=== PATIENT | male | born 1990 ===

== ENCOUNTER 2018-11-04 20:42 | Emergency (ER) | payer SELFPAY ==
[~2018-11-04] VITALS: Ht 177.8 cm; Wt 70.5 kg
[2018-11-04 20:48] VITALS: BP 161/99
--- NOTE | 2018-11-05 00:37 | NUR ---
NO REPONSE FROM LOBBY AFTER 3 CALL BACKS TO BE ROOMED. CALL PLACED TO NUMBER ON FILE. AUTOMATED MESSAGE STATES THAT THE MAIL BOX HAS NOT BEEN SET UP YET "GOOD BYE". DR TAY INFORMED
== END 2018-11-05 00:39 | disposition left against medical advice (07) ==
LOC: ER 20:43
DX: K59.00 Constipation, unspecified (principal); Z53.21 Procedure and treatment not carried out due to patient leaving prior to being seen by health care provider